=== PATIENT | female | born 1990 | race Caucasian/White ===

== ENCOUNTER 2018-11-09 20:02 | Emergency (ER) | payer BC, OTHER ==
[2018-11-09] MEDS ORDERED: Fluorescein Opthalmic Strip ONE (20:35)
[2018-11-09] MEDS ORDERED: Proparacaine 0.5% Opth 15 ML BOT ONE (20:35)
== END 2018-11-09 21:05 | disposition home or self-care (01) ==
LOC: ERS 20:02
DX: S05.01XA Injury of conjunctiva and corneal abrasion without foreign body, right eye, initial encounter (principal); G43.909 Migraine, unspecified, not intractable, without status migrainosus; X58.XXXA Exposure to other specified factors, initial encounter
CPT/HCPCS: 99283